=== PATIENT | male | born 1950 | race Caucasian/White ===

== ENCOUNTER 2018-10-06 10:24 | Day surgery (SDC) | payer MEDICARE, MEDICAID ==
[2018-10-06 11:12] LABS: BASOPHILS 0.5 % (0-2); EOSINOPHILS 3.9 % (0-7); HEMOGLOBIN 13.5 g/dL (13.5-17.5); IMMATURE GRANULOCYTES 0.1 % (0-5); LYMPHOCYTES 29.2 % (15-50); MCH 29.6 pg (26.0-34.0); MCHC 33.8 g/dL (31.0-37.0); MCV 87.7 fL (80.0-100.0); MONOCYTES 8.3 % (2-11); PLATELET COUNT 206 10x3/uL (130-400); RBC 4.56 10x6/uL (4.20-6.10); RDW 14.4 % (11.5-14.5); WBC 7.5 10x3/uL (4.8-10.8)
[2018-10-06 11:18] LABS: ALBUMIN 4.1 g/dL (3.4-5.0); ANION GAP 11.2 mmol/L (8-16); BILIRUBIN - TOTAL 1.23 mg/dL (0.2-1.3); CALCIUM 9.5 mg/dL (8.5-10.1); CREATININE - SERUM 1.6 mg/dL (0.6-1.3); POTASSIUM - SERUM 4.2 mmol/L (3.5-5.1); PROTEIN - SERUM 8.4 g/dL (6.4-8.2)
[2018-10-06 11:19] LABS: APTT 30.3 SECONDS (22.8-39.4); INR 1.11 (0.85-1.17); PROTIME 13.8 SECONDS (11.6-15.0)
[2018-10-06] MEDS ORDERED: METOPROLOL TART50 MG PO (11:52)
[2018-10-06] MEDS ORDERED: ZYLOPRIM300 MG PO (11:52)
[2018-10-06 12:06] VITALS: BP 155/65; BMI 42.8
--- NOTE | 2018-10-06 13:21 | NUR ---
1305-RECD TO ROOM FROM GI LAB. ALERT. IV PATENT. DENIES PAIN. 1310-FULL LIQUIDS SERVED.
--- NOTE | 2018-10-06 13:41 | NUR ---
DC INSTRUCTIONS GIVEN TO PT/FAMILY. STATE UNDERSTANDING. DC'D IV CATH FULLY INTACT.
--- NOTE | 2018-10-06 13:52 | NUR ---
PT LEFT UNIT VIA WC AT 1350
--- NOTE | 2018-10-09 12:40 | OP ---
PATIENT NAME: GRISELDA KWAN MEDICAL RECORD: [id number] :52 LOCATION:[facility] ADMISSION DATE: SURGEON: ROSANNA STEINBERG MD DATE OF OPERATION: 10/06/2018 PROCEDURE: Colonoscopy with polypectomy. REFERRING PHYSICIAN: Dr. Nilson Davenport. INDICATIONS: Mr. Kwan is a delightful 67-year-old gentleman with a history of colon polyps. He had a positive Cologuard test, underwent a colonoscopy on 04/04/2018 with finding showing 7 colorectal polyps and mild sigmoid diverticulosis. His prep was inadequate. A polyp histopathology showed 1 polyp to be a sessile serrated adenoma, the others to be tubular adenomas and hyperplastic polyps. He presents for a 6-month followup colonoscopy. PREMEDICATIONS: Total IV anesthesia (propofol 340 mg), history of obstructive sleep apnea, BMI of 43. PROCEDURE AND FINDINGS: After receiving informed consent, Mr. Kwan was placed in left lateral decubitus position, sedated as per anesthesia. After achieving adequate level of sedation, digital rectal exam was performed that showed no external hemorrhoidal tags, fissures or fistulas, normal sphincter tone, no palpable rectal masses. Colonoscope was introduced per rectally and advanced to the cecum without difficulty. The cecum, IC valve, and appendiceal orifice were identified and appeared normal. As the colonoscope was withdrawn, careful inspection was made of the mcbride of the colon. Overall mucosa had normal vascular and fold pattern. There was no evidence of residual or regrowth of polyps. There were few diverticula seen scattered in the sigmoid colon. In the distal rectum was a 0.3 cm sessile polyp, removed with hot biopsy forceps technique. A good prep was present. Withdrawal time was 11 minutes. Mr. Kwan tolerated the procedure well, no immediate complications. ASSESSMENT: 1. Small distal rectal polyp status post polypectomy. 2. Mild sigmoid diverticulosis coli. 3. No evidence of regrowth of the transverse serrated adenomatous polyp. 4. Colonoscopy in 3 years. TRANSINT:[id number] Voice Confirmation ID: [id number] DOCUMENT ID: [id number] ROSANNA STEINBERG MD at 1240 CC: NILSON DAVENPORT MD [id number] DICTATION DATE: 10/06/18 1255 LOCKSTITCH BINDER: 10/06/18 [id number] [facility] 10/06/18 [facility] [address] [id number]
== END 2018-10-06 13:50 | disposition home or self-care (01) ==
LOC: D.OPS 10:24
PROVIDERS: Anesthesiology; ATTEND Internal Medicine Gastroenterology
DX: K57.30 Diverticulosis of large intestine without perforation or abscess without bleeding (principal); K62.1 Rectal polyp; G47.33 Obstructive sleep apnea (adult) (pediatric); Z01.812 Encounter for preprocedural laboratory examination; Z86.010 Personal history of colon polyps

== ENCOUNTER 2019-08-29 14:18 | Outpatient (CLI) | payer MEDICARE, MEDICAID ==
[~2019-08-29] VITALS: Ht 177.8 cm; Wt 136.4 kg
[~2019-08-29 14:18] MED LIST: METOPROLOL TART50 MG PO; ZYLOPRIM300 MG PO
[2019-08-29 14:24] VITALS: BP 135/78; Ht 177.8 cm; Wt 136.4 kg
[2019-08-29] MEDS ORDERED: ASPIRIN325 MG PO (14:25)
--- NOTE | 2019-08-29 16:24 | NUR ---
ALL DC INSTRUCTIONS GIVEN. VOICES UNDERSTANDING. TAKING DOWN VIA W/C TO CAR WITH . ADVISED TO CALL OR COME BACK IF ANY PROBLEMS.
--- NOTE | 2019-08-30 09:07 | OP ---
PATIENT NAME: GRISELDA GARCIA MEDICAL RECORD: [id number] :52 LOCATION:[facility] ADMISSION DATE: SURGEON: KIERA FABIAN DO DATE OF OPERATION: 08/29/2019 PROCEDURE: EGD with removal of foreign body. SCOPE: Olympus video gastroscope. MEDICATIONS: Propofol IV per anesthesia. COMPLICATIONS: None. INDICATIONS FOR PROCEDURE: Swallowed foreign body. The patient stated that he had a pork chop bone in his throat. FINDINGS: Informed consent was given. The patient was made comfortable and intubated for airway protection. The endoscope was advanced under direct visualization through the mouth to the second portion of the duodenum. In the upper esophagus, there was a bone that was turned partially sideways and lodged in the upper esophagus. It measured approximately 2-2.5 cm in size. It was grasped using alligator forceps and removed out of the mouth. The specimen will be submitted to pathology. The endoscope was advanced back down through the mouth under direct visualization throughout the esophagus, which appeared normal. There were no residual tears. There was some slight irritation in the upper esophagus, but it appeared normal. In the distal esophagus, there were some minor reflux changes. Inside the stomach and in the bulb of the duodenum, there was scattered erythema and granularity consistent with gastritis and duodenitis. Cold forceps biopsies were taken from the antrum to submit for histopathology and to rule out the presence of H. pylori. The endoscope was completely removed from the patient. The patient tolerated the procedure well and there were no immediate complications. IMPRESSION: 1. Swallowed foreign body, status post removal. 2. Gastritis and duodenitis. 3. Mild reflux changes. PLAN AND RECOMMENDATIONS: 1. Discharge home when recovery parameters are met. 2. Follow up biopsy specimen results. 3. GERD diet and reflux precautions. 4. Continue current medications. 5. Recommend ryhu-yqu-gxcnidw antacid such as omeprazole 20 mg daily times 60 days to improve inflammation in the stomach. TRANSINT:[id number] Voice Confirmation ID: [id number] DOCUMENT ID: [id number] OPERATIVE REPORT [id number] GRISELDA GARCIA KIERA FABIAN DO at 0907 CC: [id number] DICTATION DATE: 08/29/19 1525 [employer] PREP TEACHER: 08/29/19 [id number] DEP CLI 08/29/19 [facility] [address] [facility] [place] [id number]
== END 2019-08-29 16:27 | disposition home or self-care (01) ==
LOC: D.ER 14:18 → D.OPS 14:18 → D.ER 14:18 → EDSTATUS 14:38 → D.OPS 16:27
PROVIDERS: ATTEND Emergency Medicine
DX: T18.128A Food in esophagus causing other injury, initial encounter (principal); I10 Essential (primary) hypertension

== ENCOUNTER 2019-12-08 11:46 | Emergency (ER) | payer MEDICARE, MEDICAID ==
[~2019-12-08 11:46] MED LIST changes: +ASPIRIN325 MG PO
[2019-12-08 11:57] VITALS: Ht 177.8 cm
[2019-12-08] MEDS ORDERED: HYDROCODON-ACE1 EAC7 PO (12:52)
[2019-12-08 13:13] VITALS: BP 122/64
== END 2019-12-08 13:14 | disposition home or self-care (01) ==
LOC: D.ER 11:46
DX: S63.501A Unspecified sprain of right wrist, initial encounter (principal); S60.211A Contusion of right wrist, initial encounter; S63.601A Unspecified sprain of right thumb, initial encounter; Z86.73 Personal history of transient ischemic attack (TIA), and cerebral infarction without residual deficits; I10 Essential (primary) hypertension; X58.XXXA Exposure to other specified factors, initial encounter